=== PATIENT | female | born 1975 | race Caucasian/White ===

== ENCOUNTER 2023-01-16 16:55 | Emergency (ER) | payer SELFPAY ==
[2023-01-16 17:12] VITALS: BP 125/65; PULSE 67; RESP 16; TEMP 37; O2SAT 97
--- NOTE | 2023-01-16 17:24 | ED.DENTAL ---
HPI - Dental/Oral General Chief complaint: Dental/Oral Stated complaint: left tooth pain Source: patient Mode of arrival: ambulatory History of Present Illness HPI Narrative: 47-year-old female presented for complaint of left lower dental pain, onset today. Patient states she has taken oxycodone for chronic neck pain which does little to relieve the dental pain. Pain is described as constant and throbbing. Denies swelling to the jaw, drainage, nausea, vomiting, fevers or chills. Plans to schedule with dentist when her schedule allows it. MD Complaint: tooth pain Related Data Home Medications Medication Instructions Recorded Confirmed oxycodone-acetaminophen 5 mg-325 tablet 01/16/23 mg tablet Allergies Allergy/AdvReac Type Severity Reaction Status Date / Time citalopram Allergy Unknown Unknown Verified 01/16/23 17:13 Review of Systems Review of Systems: CONSTITUTIONAL: Denies body aches, fever, chills ENT: Denies rhinorrhea, congestion, sore throat, or otalgia. Reports dental pain CARDIOVASCULAR: Denies chest pain, palpitations RESPIRATORY: Denies cough or dyspnea. SKIN: Denies rash, itching, or wounds. MUSCULOSKELETAL: Denies myalgia. NEUROLOGIC: Denies headache, numbness, tingling, or weakness. [facility] Past Medical History Medical History (Updated 01/16/23 @ 17:34 by Anastasia Martino APRN) No pertinent past medical history Family History Family History Mother Family history of chronic obstructive pulmonary disease Social History Social History Alcohol intake: never Comments At time of signature, I have reviewed and agree with nursing past medical, surgical, social and family history unless otherwise noted. Please see nursing chart for further information. There is no relevant family history pertinent to the presenting complaint Exam Narrative: GENERAL: Appears in pain; no acute distress. HEAD: Normocephalic, atraumatic. EYES: EOMI. No redness or drainage. Conjunctivae normal. ENT: Dental pain location of #20, tooth is intact, missing teeth posterior to the site. Tenderness to palpation. Mild gum swelling. Mucous membranes pink and moist. TMs normal bilaterally. Throat normal. Uvula midline. NECK: Normal AROM. No lymphadenopathy. CHEST: No respiratory distress. Clear to auscultation. HEART: Regular rate and rhythm. No murmur appreciated. SKIN: Warm, dry, no rash. Normal skin turgor. NEURO: No focal deficits. Alert and oriented x3. Gait steady. Course Course Emergency Course: Patient is aware of diagnosis, understands and agrees to treatment plan. Anticipatory guidance given. Patient agrees to follow-up as directed and is aware of reasons to seek care at the emergency department. Portions of this record may have been created with voice recognition software Level of Care: Express Care Visit Vital Signs Vital signs: Vital Signs Temperature 98.6 F 01/16/23 17:12 Pulse Rate 67 01/16/23 17:12 Respiratory Rate 16 01/16/23 17:12 Blood Pressure 125/65 01/16/23 17:12 Pulse Oximetry 97 01/16/23 17:12 Oxygen Delivery Room Air 01/16/23 17:12 Temperature 98.6 F 01/16/23 17:12 Pulse Rate 67 01/16/23 17:12 Respiratory Rate 16 01/16/23 17:12 Blood Pressure 125/65 01/16/23 17:12 Pulse Oximetry 97 01/16/23 17:12 Oxygen Delivery Room Air 01/16/23 17:12 MDM - Dental/Oral MDM Narrative Medical decision making narrative: Discussed physical exam findings. Patients pain and complaint coupled with physical findings are consistent with dentalgia There are no focal signs of space occupying lesions that are compromising to the airway; Patient is non-toxic appearing. The floor of the mouth is soft with no signs of Alfredo's Angina; no induration below mandible, no neck pain. Patient is without trismus or drooling and able to swallo
== END 2023-01-16 17:34 | disposition home or self-care (01) ==
PROVIDERS: Emergency Provider Nurse Practitioner Family
DX: K08.89 Other specified disorders of teeth and supporting structures (principal); Z79.891 Long term (current) use of opiate analgesic
CPT/HCPCS: 99213; G0463

== ENCOUNTER 2023-02-03 09:27 | Emergency (ER) | payer SELFPAY ==
--- NOTE | 2023-02-03 09:35 | ED.DENTAL ---
HPI - Dental/Oral General Chief complaint: Dental/Oral Stated complaint: Dental Pain Time Seen by Provider: 02/03/23 10:07 Mode of arrival: ambulatory Limitations: no limitations History of Present Illness HPI Narrative: 47-year-old female presents with concern for left lower dental pain. She reports she was treated with Augmentin at the beginning of January, her symptoms resolved but then returned to the same tooth. She reports she has seen a dentist and needs to tooth pulled, she is waiting until she can afford. She denies fever, trouble swallowing. MD Complaint: tooth pain Related Data Home Medications Medication Instructions Recorded Confirmed oxycodone-acetaminophen 5 mg-325 See Rx Instructions .Route .COMPLEX 01/16/23 02/03/23 mg tablet Allergies Allergy/AdvReac Type Severity Reaction Status Date / Time citalopram Allergy Unknown Unknown Verified 02/03/23 09:57 Review of Systems Review of Systems: CONSTITUTIONAL: Denies malaise, chills, sweats, or fever. EYES: Denies visual changes ENT: Denies rhinorrhea, congestion, sinus pain, otalgia or sore throat. Reports left lower dental pain CARDIOVASCULAR: Denies chest pain, palpitations RESPIRATORY: Denies cough or dyspnea. SKIN: Denies rash or itching. MUSCULOSKELETAL: Denies myalgia. NEUROLOGIC: Denies numbness, weakness, or headache. All systems reviewed & are unremarkable except as noted in HPI and below PMFSH Past Medical History Medical History (Updated 02/03/23 @ 10:14 by Jaky Miranda NP) No pertinent past medical history Family History Family History Mother Family history of chronic obstructive pulmonary disease Social History Social History Alcohol intake: never Comments At time of signature, agree with nursing past medical, surgical, social and family history. There is no relevant family history pertinent to the presenting complaint Exam Narrative: GENERAL: Well-appearing, well-nourished, and in no acute distress. HEAD: Normocephalic, atraumatic. EYES: PERRLA, sclera clear ENT: Nares clear, turbinates pink, no rhinorrhea or epistaxis. Mucous membranes moist. TM pearly jurado with sharp light reflex bilaterally; no tragal tenderness. Oropharynx without erythema or lesions. Tonsils not enlarged and without exudate. Missing teeth, broken teeth, caries, left jaw tenderness NECK: Supple. No lymphadenopathy. CHEST: No respiratory distress. Speaks in full sentences. HEART: Regular rate and rhythm. SKIN: Warm, dry, no visible rash. NEURO: Alert and oriented x3. PSYCH: Normal mood and affect Course Course Emergency Course: Patient is aware of diagnosis, understands and agrees to treatment plan. Anticipatory guidance given. Patient agrees to follow-up as directed and is aware of reasons to seek care at the emergency department. Portions of this record may have been created with voice recognition software Level of Care: Express Care Visit Vital Signs Vital signs: Reviewed. MDM - Dental/Oral MDM Narrative Medical decision making narrative: Patients pain and complaint coupled with physical findings are consistant with dentalgia. There are no focal signs of space occupying lesions that are compromising to the airway; no dysphagia, odynophagia, dysphonia, or dyspnea. No uvular deviation or soft palate edema. Patient is non-toxic appearing. The floor of the mouth is soft with no signs of Alfredo's Angina; no induration below mandible, no neck pain. Patient is without trismus or drooling and able to swallow secretions. Patient is felt appropriate for discharge home with dental follow up. Differential Diagnosis Differential diagnosis: Likely gingival abscess, dental caries, toothache, dental abscess, fracture of tooth and aphthous ulcer Critical Care Time Critical Care Time Critical Care Time: No Discharge Plan
[2023-02-03 09:49] VITALS: BP 119/66; PULSE 61; RESP 16; TEMP 36.7; O2SAT 99
== END 2023-02-03 10:24 | disposition home or self-care (01) ==
PROVIDERS: Emergency Provider Nurse Practitioner
DX: K08.89 Other specified disorders of teeth and supporting structures (principal); Z79.891 Long term (current) use of opiate analgesic
CPT/HCPCS: 99213; G0463

== ENCOUNTER 2024-01-18 13:28 | Emergency (ER) | payer SELFPAY ==
[2024-01-18 13:39] VITALS: BP 119/74; PULSE 67; RESP 16; TEMP 36.1; O2SAT 98
[2024-01-18 13:42] VITALS: BP 119/74; PULSE 67; RESP 16; TEMP 36.1; O2SAT 98
--- NOTE | 2024-01-18 14:51 | ED.DENTAL ---
HPI - Dental/Oral General Chief complaint: Dental/Oral Stated complaint: left side tooth pain Time Seen by Provider: 01/18/24 14:51 Source: patient, RN notes reviewed and old records reviewed Mode of arrival: ambulatory Limitations: no limitations History of Present Illness HPI Narrative: patient presents with complaints of left lower tooth pain. She reports the pain began about a week ago, but has gotten worse over the past couple of days. The she has mild associated gingival swelling without any active drainage. No facial swelling. Denies any fever, chills, sweats. She denies any difficulty swallowing, no drooling or stridor noted. She has been taking Tylenol with minimal read Related Data Home Medications Medication Instructions Recorded Confirmed oxycodone-acetaminophen 5 mg-325 See Rx Instructions .Route .COMPLEX 01/16/23 01/18/24 mg tablet escitalopram oxalate 10 mg tablet 10 mg PO DAILY 01/18/24 01/18/24 Allergies Allergy/AdvReac Type Severity Reaction Status Date / Time citalopram Allergy Unknown Unknown Verified 01/18/24 13:38 Review of Systems Review of Systems: All systems reviewed & are unremarkable except as noted in HPI and below Constitutional: Constitutional: Reports no additional constitutional complaints ENT: Reports system reviewed and no additional complaints, except as documented and Reports as per HPI Cardiovascular: Cardiovascular: Reports no additional cardiovascular complaints Respiratory: Respiratory: Reports no additional respiratory complaints Gastrointestinal: Gastrointestinal: Reports no additional gastrointestinal complaints [facility] Past Medical History Medical History (Updated 01/19/24 @ 00:01 by Gopi Bhagat) No pertinent past medical history Family History Family History Mother Family history of chronic obstructive pulmonary disease Social History Social History Alcohol intake: never Comments At the time of my signature, I reviewed and agree with the nursing past medical, surgical, social, and family history. There is no relevant family history pertinent to the patient complaint. Exam Const: General: cooperative, no acute distress, alert and awake Orientation/consciousness: oriented to person, oriented to place and oriented to time HENMT: Head: normal to inspection Mouth: Yes moist mucous membranes Teeth and gingiva: fair dentition and other ( lower left tooth damaged, associated gingival swelling with no drainage) Resp: Effort & Inspection: normal respiratory effort and able to speak in complete sentences Auscultation: clear to auscultation bilaterally, no crackles, no rales, no rhonchi and no wheezes Cardio: Palpation: normal PMI Rate: regular rate Rhythm: regular rhythm Heart sounds: S1 normal heart sound present and S2 normal heart sound present Neuro: General: oriented to person, oriented to place and oriented to time Cranial nerves: Yes CN's II-XII intact bilaterally Psych: Appearance: grossly normal Thought process: Normal thought process present Insight: Good insight present (Psych) Judgement: Good judgement present (Psych) Course Course Level of Care: Express Care Visit Vital Signs Vital signs: Vital Signs Temperature 97.0 F L 01/18/24 13:39 Pulse Rate 67 01/18/24 13:39 Respiratory Rate 16 01/18/24 13:39 Blood Pressure 119/74 01/18/24 13:39 Pulse Oximetry 98 01/18/24 13:39 Oxygen Delivery Room Air 01/18/24 13:39 Temperature 97.0 F L 01/18/24 13:42 Pulse Rate 67 01/18/24 13:42 Respiratory Rate 16 01/18/24 13:42 Blood Pressure 119/74 01/18/24 13:42 Pulse Oximetry 98 01/18/24 13:42 Oxygen Delivery Room Air 01/18/24 13:42 Reviewed MDM - Dental/Oral MDM Narrative Medical decision making narrative: patient with fair dentition, obvious dental infection in process. Nontoxic
== END 2024-01-18 15:09 | disposition home or self-care (01) ==
PROVIDERS: Emergency Provider Nurse Practitioner Family; PCP Internal Medicine
DX: K04.7 Periapical abscess without sinus (principal)
CPT/HCPCS: 99213; G0463

== ENCOUNTER 2025-02-19 15:10 | Emergency (ER) | payer OTHER, SELFPAY ==
[2025-02-19 15:22] VITALS: BP 130/63; PULSE 86; RESP 20; TEMP 36.6; O2SAT 98
--- NOTE | 2025-02-19 15:39 | ED_ITS ---
HPI - URI/Sore Throat General Chief Complaint: Upper Respiratory Infection Stated Complaint: Sinus/Congestion Time Seen by Provider: 02/19/25 15:15 Source: patient and RN notes reviewed Mode of arrival: ambulatory Limitations: no limitations History of Present Illness HPI Narrative: 49-year-old female presents Express Care complaining of upper respiratory symptoms for approximately 2 weeks. Patient reports sinus pressure, congestion, runny nose, mucopurulent nasal drainage, cough that has not gotten any better. Patient denies any other upper respiratory symptoms, fevers, eczema chills, nausea vomiting, diarrhea, chest pain, difficulty breathing wheezing, abdominal pain, or any other symptoms. Patient use [id number] cold/flu medications without relief. Patient reports a history of emphysema and smoking history, she is not using anything for her emphysema. Related Data Home Medications ?Medication ?Instructions ?Recorded ?Confirmed ?Last Taken ?Type escitalopram oxalate 10 mg tablet 10 mg PO DAILY 01/1702/19/25 Unknown History Allergies Allergy/AdvReac Type Severity Reaction Status Date / Time citalopram Allergy Unknown Unknown Verified 02/19/25 15:28 Review of Systems Review of Systems: CONSTITUTIONAL: Denies fever, body aches, chills, or sweats. EYES: Denies visual changes, redness, or discharge. ENT: Denies rhinorrhea, otalgia, sore throat. Positive for congestion, sinus pressure, mucopurulent nasal drainage. CARDIOVASCULAR: Denies chest pain, palpitations, or edema. RESPIRATORY: Positive for cough. Negative wheezing or dyspnea. GASTROINTESTINAL: Denies abdominal pain, nausea, vomiting, or diarrhea. GENITOURINARY: Denies dysuria or hematuria. SKIN: Denies rash or itching. MUSCULOSKELETAL: Denies back pain, joint pain, or myalgia. NEUROLOGIC: Denies headache, numbness, or weakness. PSYCHIATRIC: Denies anxiety or depression. All other systems reviewed are negative, except as documented in HPI. [facility] Past Medical History Medical History No pertinent past medical history Family History Family History Mother Family history of chronic obstructive pulmonary disease Social History Social History (Reviewed 02/19/25 @ 15:42 by HEMA Waters Alcohol intake: never Comments At the time of my signature, I reviewed and agree with the nursing past medical, surgical, social, and family history. There is no relevant family history pertinent to the patient complaint. Exam Narrative: GENERAL: This is a well-nourished, well-developed adult, in no apparent distress. They are non ill-appearing, nontoxic appearing. HEAD: normocephalic, atraumatic. EYES: Sclera clear/white. Conjunctiva normal. Vision is grossly intact. Extraocular movements intact EARS: External ears normal, auditory canals clear and without drainage, TMs normal without perforation. Hearing grossly intact. NOSE: External nose normal with no obvious nasal discharge, nasal turbinates erythematous with exudate, no rhinorrhea. Maxillary and frontal sinus tenderness to palpation. THROAT: Mucous membranes moist, posterior pharynx edematous with out erythema. Uvula midline. Postnasal drip present. NECK: Neck supple, non-tender without lymphadenopathy, masses or thyromegaly. CARDIOVASCULAR: Regular rate and rhythm without murmurs, gallops, or rubs. RESPIRATORY: Clear to auscultation. Breath sounds equal bilaterally. No wheezes, rales, or rhonchi. SKIN: warm, Dry, intact with no suspicious lesions or rash, good texture and turgor. NEURO: awake, alert, and oriented to person, place and time. There were no obvious focal neurologic abnormalities. EXTREMITIES: No joint tenderness, effusion, or edema noted. BACK: Nontender without deformity. Course Course Emergency Course: Portions of this record may have been created with voice recognition software Level of Care: Express Care Visit Vital Signs Vital signs: Vital Signs Temperature 97.9 F 02/19/25 15:22 Pulse Rate 86 02/19/25 15:22 Respiratory Rate 20 02/19/25 15:22 Blood Pressure 130/63 02/19/25 15:22 Pulse Oximetry 98 02/19/25 15:22 Oxygen Delivery Room Air 02/19/25 15:22 Temperature 97.9 F 02/19/25 15:22 Pulse Rate 86 02/19/25 15:22 Respiratory Rate 20 02/19/25 15:22 Blood Pressure 130/63 02/19/25 15:22 Pulse Oximetry 98 02/19/25 15:22 Oxygen Delivery Room Air 02/19/25 15:22 Reviewed MDM - URI/Sore Throat MDM Narrative Medical decision making narrative: Given patient's length of symptoms likely she has bacterial sinusitis. Will treat her with Augmentin. Discussed physical exam findings. Advised supportive measures and signs/symptoms to go to the ER. Pt is appropriate for outpt treatment and f/u. Differential Diagnosis Differential diagnosis: Likely upper respiratory infection, otitis media, sinusitis, viral infection and pharyngitis Critical Care Time Critical Care Time Critical Care Time: No Discharge Plan Discharge Clinical Impression: Sinusitis Qualifiers: Sinusitis location: unspecified location Chronicity: acute Recurrence: non- recurrent Qualified Code(s): J01.90 - Acute sinusitis, unspecified Patient Disposition: Home Condition: Stable Instructions: Antibiotic Form, Sinusitis (ED) Additional Instructions: Take the antibiotics as directed and complete the course even if you start to feel better. You may use a Neti pot saline rinse 3 times a day with lukewarm distilled water Continue to take Tylenol or Motrin as needed for pain or fevers. Follow instructions on the bottle. Use a humidifier or vaporizer at night. Drink plenty of water. 8-10 glasses per day. Use flonase 2 times per day for 5 days then as needed Use as the azelastine antihistamine nasal spray 2 sprays each nostril for congestion. Take mucinex 2 times per day and be sure to take with 8oz of water. Follow up with Primary provider in 3-5 days Please go to the ER if he develops any difficulty breathing, worsening symptoms, or any other concerns Patient Language: Czech Prescriptions: New amoxicillin-pot clavulanate 875-125 mg tablet 1 tablet PO Q12H 7 Days Qty: 14 0RF No Action escitalopram oxalate 10 mg tablet 10 mg PO DAILY Follow-up/Referrals: Sommer,Mary Beth Hendrix MD [Primary Care Provider] Time of Disposition: 15:33
== END 2025-02-19 15:39 | disposition home or self-care (01) ==
PROVIDERS: PCP Internal Medicine
DX: J01.90 Acute sinusitis, unspecified (principal); J43.9 Emphysema, unspecified; Z87.891 Personal history of nicotine dependence
CPT/HCPCS: 99213; G0463